=== PATIENT | female | born 1970 | race Two or more races ===

== ENCOUNTER 2023-10-29 12:14 | Emergency (ER) | payer BC ==
[~2023-10-29] VITALS: Ht 170.2 cm; Wt 63.0 kg
[2023-10-29] MEDS ORDERED: 0.9 % SODIUM CHLORIDE 1,000 ML IV STA (12:42)
[2023-10-29] MEDS ORDERED: METOCLOPRAMIDE HCL 5 MG/ML VIAL IV STA (12:43)
[2023-10-29] MEDS ORDERED: ONDANSETRON HCL 2 MG/ML VIAL IV ONE (12:45)
[2023-10-29] MEDS ORDERED: FAMOtidine 10 MG/ML (4ML VIAL) IV SCH (12:45)
[2023-10-29] MEDS ORDERED: ONDANSETRON HCL 2 MG/ML VIAL ONE (12:50)
[2023-10-29] MEDS ORDERED: METOCLOPRAMIDE HCL 5 MG/ML VIAL ONE (12:50)
[2023-10-29] MEDS ORDERED: FAMOtidine 200mg/20ml VIAL ONE (12:51)
[2023-10-29 13:42] LABS: HEMATOCRIT 38.2 % (36.0-45.00); HEMOGLOBIN 13.4 g/dL (12.0-15.00); MEAN CELL VOLUME 85.6 fL (80.00-100.00); MEAN CORPUSCULAR HEMOGLOBIN 30.1 pg (27.00-32.0); MEAN CORPUSCULAR HGB CONC 35.1 g/dl (32.0-36.0); PLATELET COUNT 277 K/uL (150-450); RED BLOOD COUNT 4.47 M/uL (4.00-6.00); RED CELL DISTRIBUTION WIDTH 12.8 % (11.5-14.5)
[2023-10-29 15:20] LABS: URINE APPEARANCE Clear; URINE BILIRRUBIN Negative (NEGATIVE); URINE BLOOD Trace; URINE COLOR Yellow; URINE GLUCOSE Negative (NEGATIVE); URINE LEUKOCYTE Moderate; URINE NITRATE Negative; URINE PROTEIN Negative (NEGATIVE)
[2023-10-29 15:26] LABS: URINE BACTERIA 275.9 uL (0.0-1933); URINE EPITHELIAL CELLS 13.2 uL (0.0-38.8); URINE RBC 14.6 uL (0.0-20.8); URINE WBC 24.3 uL (0.0-23.2)
[2023-10-29 15:46] LABS: ALBUMIN 3.8 gm/dL (3.4-5.0); BILIRUBIN TOTAL 0.63 mg/dL (0.3-1.2); BILIRUBIN,CONJUGATED 0.17 mg/dL (0.0-0.2); BILIRUBIN,UNCONJUGATED 0.46 mg/dL (0.0-0.6); CALCIUM 8.6 mg/dL (8.5-10.1); CREATININE SERUM 0.55 mg/dL (0.55-1.02); GFR 114.75; POTASSIUM 3.61 mEq/L (3.5-5.1); TOTAL PROTEIN 7.8 gm/dL (6.4-8.2)
== END 2023-10-29 15:53 | disposition home or self-care (01) ==
LOC: ER 12:15
PROVIDERS: General Practice
DX: U07.1 COVID-19 (principal); R10.9 Unspecified abdominal pain; F32.89 Other specified depressive episodes